=== PATIENT | male | born 1950 | race African-American/Black ===

== ENCOUNTER 2017-01-05 18:01 | Emergency (ER) | payer MEDICARE ==
[2017-01-05] MEDS ORDERED: Sodium Chloride 0.9% 1,000 ML ONE (18:09)
[2017-01-05] MEDS ORDERED: Meclizine HCl 25 MG TAB ONE (18:32)
[2017-01-05] MEDS ORDERED: Ondansetron HCl/PF 4 MG/2 ML Vial ONE (18:34)
[2017-01-05 19:09] LABS: #Lymphocytes 0.4 thou/uL (1.20-3.40); #Monocytes 0.2 thou/uL (0.11-0.59); #Neutrophils 5.3 thou/uL (1.40-6.50); %Basophils 0.6 % (0.0-1.0); %Eosinophils 0.2 % (0.0-10.0); %Monocytes 3.5 % (0.0-10.0); %Neutrophils 89.6 % (42.0-75.0); Hemoglobin 15.8 g/dL (14.0-18.0); Mean Corpuscular HGB CONC 32.7 g/dL (32.0-36.0); Mean Corpuscular Volume 91.8 fl (80.0-94.0); Mean Platelet Volume 6.3 fL (7.4-10.4); Platelet Count 170 thou/uL (130-400); RBC Distribution Width 11.3 % (11.5-14.5); Red Blood Cell (RBC) Count 5.25 mill/uL (4.70-6.10); White Blood Cell (WBC) Count 5.9 thou/uL (4.8-10.8)
[2017-01-05 19:12] LABS: ALT (SGPT) 20 U/L (8-55); AST (SGOT) 26 U/L (5-34); Albumin 4.3 g/dL (3.4-4.8); Alkaline Phosphatase 80 U/L (40-150); Anion Gap 17 mmol/L (10-20); BUN (Urea Nitrogen) 13 mg/dL (8.4-25.7); Bilirubin, Total 1.1 mg/dL (0.2-1.2); Calc. Creatinine Clearance 0 mL/min (70-130); Calcium 9.3 mg/dL (7.8-10.44); Carbon Dioxide 22 mmol/L (23-31); Chloride 107 mmol/L (98-107); Estimated GFR-MDRD 56; Globulin 3.3 g/dL (2.4-3.5); Glucose 101 mg/dL (80-115); Protein, Total 7.6 g/dL (5.8-8.1); Sodium 142 mmol/L (136-145)
[2017-01-05 19:17] LABS: CKMB 2.6 ng/mL (0-6.6)
--- NOTE | 2017-01-05 20:32 | RAD ---
SINGLE VIEW OF THE CHEST: 01/05/17 COMPARISON: None. HISTORY: Dyspnea and watery diarrhea. Dizziness. FINDINGS: Single view of the chest shows a normal sized cardiomediastinal silhouette. There is a left subclavi an pacemaker with its leads in the right atrium and ventricle. There may be calcified right hilar ly mph nodes. There is no evidence of consolidation, mass or pleural effusion. IMPRESSION: No evidence of acute cardiopulmonary disease. POS: [facility]
== END 2017-01-05 20:04 | disposition home or self-care (01) ==
LOC: NAV ERS 18:01
DX: H83.03 Labyrinthitis, bilateral (principal); B34.9 Viral infection, unspecified
CPT/HCPCS: 71010; 80053; 82553; 83880; 84484; 85025; 93005; 94760; 96361; 96374; J2405; J7050